=== PATIENT | male | born 1960 | race Two or more races ===

== ENCOUNTER 2021-05-25 09:39 | Emergency (ER) | payer OTHER ==
[~2021-05-25] VITALS: Ht 167.6 cm; Wt 72.6 kg
[2021-05-25 09:43] VITALS: BP 148/92
[2021-05-25] MEDS ORDERED: TDAP [DIPH/PERTUSSIS/TET] 0.5 ML VIAL IM ONE ×2 (09:58→10:00)
--- NOTE | 2021-05-25 11:11 | NUR ---
Patient discharged in custody in stable condition. Written and verbal after care instructions given. Patient verbalizes understanding of instruction.
== END 2021-05-25 11:12 ==
LOC: ER 09:43
DX: S61.012A Laceration without foreign body of left thumb without damage to nail, initial encounter (principal); S20.219A Contusion of unspecified front wall of thorax, initial encounter; W26.0XXA Contact with knife, initial encounter; Y93.89 Activity, other specified; Y92.89 Other specified places as the place of occurrence of the external cause; Y99.8 Other external cause status
CPT/HCPCS: 71045-TC; 90715